=== PATIENT | female | born 1940 | race Caucasian/White ===

== ENCOUNTER → 2017-09-07 | Outpatient (CLI) | payer OTHER ==
[~2017-09-07] MED LIST: AMIO200T4 PO; AMLO-110 PO; ASPI-232 PO; ATV/1 PO; DMD20 PO; IRON5TAB PO; LEVO25TA5 PO; LOSA1TAB PO; METO100T44 PO; NTRSL3 UT; POTA20TA13 PO; PRT40 PO; REGADENOSON 0.4 MG/5 ML SYR ONE; SERT-234 PO; SPR25 PO; TORS20TA2 PO; TRAM-10 PO
--- NOTE | 2017-09-07 18:03 | MYOCARDIAL PERFUSION SCAN ---
PROCEDURE: Cardiolite stress test. INTERPRETATION SUMMARY: The patient had a stress test according to a standard Lexiscan protocol. The patient achieved a work level of 1.0 mets. Resting heart rate of 60 beats per minute russell to a maximum heart rate of 75 beats per minute. This represents 52% of the maximal, age predicted heart rate. Resting blood pressure of 165/80 with a maximum blood pressure of 174/89. Stress test was terminated due to end of protocol. BLOOD PRESSURE: Hypertensive baseline blood pressure with normal response to Lexiscan infusion. HEART RATE: Normal heart rate response to Lexiscan infusion. SYMPTOMS: Lightheadedness. RESTING ECG: AV paced rhythm. STRESS ECG: Nondiagnostic secondary to AV paced rhythm. TECHNIQUE: For the stress portion of the study, 31.2 mCi of Technetium 99 m Cardiolite IV was injected at 1315 pm on 09/07/2017. 45 minutes following the injection, imaging of the heart was performed in multiple projection. For the rest portion of the study, 10.5 mCi of Technetium 99 m Cardiolite was injected IV at 11:30 am. One hour following the injection, imaging of the heart was performed in the same projections. RAW DATA IMAGING: There is small bowel uptake of isotopic tracer noted on the rest and stress rotating raw data images. There is no other extraneous uptake of isotopic tracer noted. RIGHT VENTRICLE: Not well visualized. RESTING STUDY: There was a small defect of mild intensity involving the base inferior wall. The remaining left ventricular myocardial wall segments demonstrate normal perfusion. STRESS STUDY: There is a small defect of mild intensity involving the base inferior wall. The remaining left ventricular myocardial wall segments demonstrate normal perfusion. GATED STUDY: Was not performed due to difficulties with getting the paced rhythm. LV SIZE: Normal at rest. CONCLUSION: Lexiscan nuclear stress test negative for inducible ischemia. There is a small basal inferior defect which may suggest inferior scar versus soft tissue attenuation artifact. Consider resting 2D transthoracic echo for further evaluation.
== END | disposition home or self-care (01) ==
LOC: C.NUCL 10:59
PROVIDERS: ATTEND Physician Assistant
DX: Z01.810 Encounter for preprocedural cardiovascular examination (principal); R06.09 Other forms of dyspnea